=== PATIENT | male | born 2000 | race Caucasian/White ===

== ENCOUNTER 2020-12-29 23:26 | Emergency (ER) | payer SELFPAY ==
[~2020-12-29] VITALS: Ht 177.8 cm; Wt 66.4 kg
--- NOTE | 2020-12-29 23:30 | PHYS DOC ---
General Adult HPI: HPI: ". I accidentally shut the door on my index finger..." Patient is a 20 year old male who presents with above hx and complaints of Lt. index finger crush injury. Patient appears to have almost avulsion of Lt. index finger nail. Other fingers have no injury. Patient is right-hand dominant. Patient normally healthy.. Tetanus is up-to-date. No recent travel. No specific ill contacts. Review of Systems: Review of Systems: Constitutional: Denies fever or chills Eyes: Denies change in visual acuity HENT: Denies nasal congestion or sore throat Respiratory: Denies cough or shortness of breath Cardiovascular: Denies chest pain or edema GI: Denies abdominal pain, nausea, vomiting, bloody stools or diarrhea : Denies dysuria Musculoskeletal: Complains of crush injury to left index finger Integument: Denies rash Neurologic: Denies headache, focal weakness or sensory changes Endocrine: Denies polyuria or polydipsia Lymphatic: Denies swollen glands Psychiatric: Denies depression or anxiety Family History: Family History: Noncontributory to presentation Current Medications: Current Meds: See nursing for home meds Allergies: Allergies: See nursing Physical Exam: PE: Constitutional: Well developed, well nourished, in acute distress, non-toxic appearance. [] HENT: Normocephalic, atraumatic, bilateral external ears normal, oropharynx moist, no oral exudates, nose normal. [] Eyes: PERRLA, EOMI, conjunctiva normal, no discharge. [] Neck: Normal range of motion, no tenderness, supple, no stridor. [] Cardiovascular:Heart rate regular rhythm, no murmur [] Lungs & Thorax: Bilateral breath sounds clear to auscultation [] Abdomen: Bowel sounds normal, soft, no tenderness, no masses, no pulsatile masses. [] Skin: Warm, dry, no erythema, no rash. [] Back: No tenderness, no CVA tenderness. [] Extremities: No tenderness, no cyanosis, no clubbing, ROM intact, no edema. [] Crush injury to left index finger as per HPI Neurologic: Alert and oriented X 3, normal motor function, normal sensory function, no focal deficits noted. [] Psychologic: Affect normal, judgement normal, mood normal. [] EKG: EKG: [] Radiology/Procedures: Radiology/Procedures: [][address] [address] IMAGING REPORT Signed PATIENT: INDIGO TODD: [id number] : 2000 LOCATION: ER AGE: 20 SEX: M EXAM STATUS: REG ER ORD. PHYSICIAN: KRISTIN MCCURDY MD REASON: shut hand in door. PROCEDURE: HAND LEFT 3V Examination: 3 views of the left hand HISTORY: History of injury COMPARISON: None available. Findings/ impression: The alignment of the metacarpophalangeal, interphalangeal joints grossly appears unremarkable. Soft tissue laceration identified in the dorsal to distal phalanx of the index finger . Electronically signed by: Gordo Gallardo MD (12/30/2020 12:36 AM) [id number] DICTATED AND SIGNED BY: GORDO GALLARDO MD DATE: 12/30/203 CC: LISE CLAUDIO MD; KRISTIN MCCURDY MD ~MTH0 0 Heart Score: C/O Chest Pain: N/A Risk Factors: Risk Factors: DM, Current or recent (<one month) smoker, HTN, HLP, family history of CAD, obesity. Risk Scores: Score 0 - 3: 2.5% MACE over next 6 weeks - Discharge Home Score 4 - 6: 20.3% MACE over next 6 weeks - Admit for Clinical Observation Score 7 - 10: 72.7% MACE over next 6 weeks - Early Invasive Strategies Course & Med Decision Making: Course & Med Decision Making Pertinent Labs and Imaging studies reviewed. 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 Hand soaked in Betadine solution. Patient received a digital block to left index finger with 2% lidocaine. Afterwards patient scrubs finger with surgical scrub brush. Left sharp scissors were removed part of index finger nail. Patient will and we cleaned with surgical brush. Patient's finger dressed with gauze and received a sherie splint. Patient take Bactrim DS twice a day. Monitor for infection. Follow-up primary care. Patient told to expect possible nail loss. Return if any concerns. Impression: 1. Crush Injury to Lt. Index finger [] Khurram Disclaimer: Khurram Disclaimer: This electronic medical record was generated, in whole or in part, using a voice recognition dictation system. Departure Departure: Referrals: LISE CLAUDIO MD (PCP) Scripts Sulfamethoxazole/Trimethoprim (BACTRIM DS TABLET) 1 Each Tablet 1 TAB PO BID for crush for 7 Days, #14 TAB 0 Refills Prov: KRISTIN MCCURDY MD 12/30/20 KRISTIN MCCURDY MD Dec 29, 2020 23:30
[2020-12-30] MEDS ORDERED: KETOROLAC 60 MG/2 ML VIAL. IM ONE
[2020-12-30] MEDS ORDERED: LIDOCAINE 2% 20 ML VIAL. IJ ONE
[2020-12-30] MEDS ORDERED: MORPHINE SULFATE 10 MG/ML SYRINGE. SQ ONE
[2020-12-30] MEDS ORDERED: SMZ/TMP 800/160MG TABLET. PO ONE
[2020-12-30] MEDS ORDERED: cefTRIAXone IM 1 GM VIAL IM ONE
--- NOTE | 2020-12-30 00:39 | RAD ---
Examination: 3 views of the left hand HISTORY: History of injury COMPARISON: None available. Findings/ impression: The alignment of the metacarpophalangeal, interphalangeal joints grossly appears unremarkable. Soft t issue laceration identified in the dorsal to distal phalanx of the index finger . Electronically signed by: Gordo Bailey MD (12/30/2020 12:36 AM) [id number]
[2020-12-30] MEDS ORDERED: SULF1TAB24 PO (00:48)
[2020-12-30] MEDS ORDERED: GLYCERIN CHILD 1 SUPP.RECT. PR ONE (01:15)
[2020-12-30] MEDS ORDERED: MAGNESIUM HYDROXIDE 2,400 MG/30 ML ORAL.SUSP. PO ONE (01:15)
[2020-12-30] MEDS ORDERED: GLYCERIN ADULT 1 SUPP.RECT. PR ONE (01:15)
[2020-12-30 01:28] VITALS: BP 116/62
== END 2020-12-30 01:28 | disposition home or self-care (01) ==
LOC: ER 23:26
DX: S67.191A Crushing injury of left index finger, initial encounter (principal); W23.0XXA Caught, crushed, jammed, or pinched between moving objects, initial encounter; Y93.89 Activity, other specified; Y92.89 Other specified places as the place of occurrence of the external cause; Y99.8 Other external cause status
CPT/HCPCS: 11730; 73130; 96372; 99284; J0696; J1885; J2001; J2270

== ENCOUNTER 2021-06-14 00:11 | Emergency (ER) | payer SELFPAY ==
[~2021-06-14] VITALS: Ht 177.8 cm; Wt 69.4 kg
[~2021-06-14 00:11] MED LIST: SULF1TAB24 PO
[2021-06-14 00:18] VITALS: BP 116/75
[2021-06-14] MEDS ORDERED: AMOX500T PO (00:36)
--- NOTE | 2021-06-14 00:41 | PHYS DOC ---
Past History Past Surgical History: Other Additional Past Surgical Histo: facial surgery Alcohol Use: None Adult General Chief Complaint Chief Complaint: CONGESTION HPI HPI Patient is a 21-year-old male presenting for nasal congestion. This is an acute on chronic issue. He has history of seasonal allergies and typically takes antihistamine but has been off of his Claritin for numerous months. States he has suffered with nasal congestion over past 2 months due to weather changes but specifically over past 13 days has had increased nasal rhinorrhea, congestion and frontal sinus pressure. He has had no fever but ongoing symptoms without significant resolution prompted him to come in for evaluation. He denies any other relevant medical issues and takes no other medications on a daily basis. He is up-to-date on all immunizations from childhood in addition to flu and Covid. He admits to ongoing tobacco abuse but states he is decreased total frequency since current onset of symptoms, rare alcohol use, no illicit drug use Review of Systems Review of Systems Fourteen body systems of review of systems have been reviewed. See HPI for pertinent positives and negative responses, other owens all other systems are negative, non-pertinent or non-contributory Allergies Allergies Allergies Coded Allergies Type Severity Reaction Last Updated Verified bee venom protein (honey bee) Allergy Unknown 12/29/20 Yes Physical Exam Physical Exam General: Appears well, non toxic, and comfortable Skin: Warm, dry. Normal for ethnicity. HEENT: Atraumatic. PERRLA. Rhinorrhea and congestion. Frontal sinus pressure with palpation. Nasal turbinates boggy b/l. Moist mucous membranes. Uvula midline. Maintaining secretions. No phonation changes. Neck: Trachea midline. Normal ROM. No stridor. Respiratory: Normal WOB. CTAB w/o w/r/r. No tachypnea. Cardiovascular: Regular rate and rhythm. Normal peripheral perfusion. Abdomen: Soft. Non tender. No distension. Back: Normal ROM. Musculoskeletal: No swelling or deformity. Neuro: Alert and oriented x 4. MAEE. Lymph: No cervical LAD. Psych: Normal affect and mood. EKG EKG [] Radiology/Procedures Radiology/Procedures [] Heart Score C/O Chest Pain: No Risk Factors: Risk Factors: DM, Current or recent (<one month) smoker, HTN, HLP, family history of CAD, obesity. Risk Scores: Risk Factors: DM, Current or recent (<one month) smoker, HTN, HLP, family history of CAD, obesity. Course & Med Decision Making Course & Med Decision Making ABCs unremarkable History and physical exam concerning for acute bacterial sinusitis greater than 10 days in duration not otherwise well-appearing individual with no airway patency issues, phonation changes etc. Joint decision made given chronicity of symptoms to treat with antibiotics. Amoxicillin administered in ER with subsequent prescription given. Continued supportive care practices such as taking daily antihistamine advised with close PCP follow-up Did recommend checking for Covid given symptoms and current pandemic but patient deferred citing that he was fully vaccinated. He is aware he could still be positive for this infection but deferred testing at this time Ultimately all questions and concerns addressed prior to ER departure Dragon Disclaimer Dragon Disclaimer This electronic medical record was generated, in whole or in part, using a voice recognition dictation system. Departure Departure: Impression: Primary Impression: Acute bacterial sinusitis Disposition: HOME / SELF CARE / HOMELESS Condition: STABLE Referrals: LISE CLAUDIO MD (PCP) Additional Instructions: As discussed prior to ER departure, your vitals and physical exam were nonconcerning for any emergent or surgical issues. With that said you are likely suffering from bacterial sinusitis and would benefit from antibiotic use given duration of symptoms. When decision made to prescribed amoxicillin which should be taken as scheduled to completion in its entirety. He also need to start taking a daily antihistamine given your history of seasonal allergies. He is contact your primary care physician in the morning to review ER visit today and need for close outpatient follow-up. If any concerning signs or symptoms present prior to outpatient follow-up please do not hesitate to come back for repeat evaluation. It was a pleasure to take care of you and I wish you the best going forward Scripts Amoxicillin (AMOXICILLIN) 500 Mg Tablet 1 TAB PO TID for sinusitis for 7 Days, #20 TAB Prov: SUNI MARIA DO 06/14/21 SUNI MARIA DO Jun 14, 2021 00:41
[2021-06-14] MEDS ORDERED: AZITHROMYCIN 250 MG TABLET. PO ONE (00:45)
[2021-06-14] MEDS ORDERED: AMOXICILLIN 250 MG CAPSULE PO ONE (01:00)
== END 2021-06-14 00:47 | disposition home or self-care (01) ==
LOC: ER 00:11
DX: J01.80 Other acute sinusitis (principal); B96.89 Other specified bacterial agents as the cause of diseases classified elsewhere; Z91.030 Bee allergy status
CPT/HCPCS: 99283

== ENCOUNTER 2021-07-05 18:03 | Emergency (ER) | payer SELFPAY ==
[~2021-07-05] VITALS: Ht 177.8 cm; Wt 69.4 kg
[~2021-07-05 18:03] MED LIST changes: +AMOX500T PO
[2021-07-05 19:13] LABS: INFLUENZA A PATIENT NEGATIVE (NEGATIVE); INFLUENZA B PATIENT NEGATIVE (NEGATIVE)
[2021-07-05 23:00] VITALS: BP 118/75
--- NOTE | 2021-07-05 23:21 | PHYS DOC ---
Past History Past Surgical History: Other Additional Past Surgical Histo: facial surgery Alcohol Use: None General Adult EDM: Chief Complaint: CONGESTION HPI: HPI: ". I ve been congested.. " Patient is a 21 year old male who presents with above hx and complaints of congestion. Tob. use. Allergic to materials at his work. Review of Systems: Review of Systems: Constitutional: Denies fever or chills Eyes: Denies change in visual acuity HENT: C/O nasal congestion Respiratory: Denies cough or shortness of breath Cardiovascular: Denies chest pain or edema GI: Denies abdominal pain, nausea, vomiting, bloody stools or diarrhea : Denies dysuria Musculoskeletal: Denies back pain or joint pain Integument: Denies rash Neurologic: Denies headache, focal weakness or sensory changes Endocrine: Denies polyuria or polydipsia Lymphatic: Denies swollen glands Psychiatric: Denies depression or anxiety Family History: Family History: Non Cont. Trib. Current Medications: Current Meds: See Nursing for home Allergies: Allergies: Allergies Coded Allergies Type Severity Reaction Last Updated Verified bee venom protein (honey bee) Allergy Unknown 12/29/20 Yes Physical Exam: PE: Constitutional: Well developed, well nourished, no acute distress, non-toxic appearance. [] HENT: Normocephalic, atraumatic, bilateral external ears normal, oropharynx moist, no oral exudates, nose swollen turb, clear rhinorrhea. Eyes: PERRLA, EOMI, conjunctiva normal, no discharge. [] Neck: Normal range of motion, no tenderness, supple, no stridor. [] Cardiovascular:Heart rate regular rhythm, no murmur [] Lungs & Thorax: Bilateral breath sounds= with few scat. wheezes on auscultation [] Abdomen: Bowel sounds normal, soft, no tenderness, no masses, no pulsatile mass es. [] Skin: Warm, dry, no erythema, no rash. [] Back: No tenderness, no CVA tenderness. [] Extremities: No tenderness, no cyanosis, no clubbing, ROM intact, no edema. [] Neurologic: Alert and oriented X 3, normal motor function, normal sensory function, no focal deficits noted. [] Psychologic: Affect normal, judgement normal, mood normal. [] Current Patient Data: Labs: Laboratory Tests Test 07/05/21 18:30 Influenza Type A (Rapid) Negative (NEGATIVE) Influenza Type B (Rapid) Negative (NEGATIVE) SARS-CoV-2 Antigen (Rapid) Negative (NEGATIVE) Vital Signs: Vital Signs Date Time Temp Pulse Resp B/P (MAP) Pulse Ox O2 Delivery O2 Flow Rate FiO2 07/05/21 18:40 98.2 81 16 116/75 (89) 98 Room Air EKG: EKG: [] Radiology/Procedures: Radiology/Procedures: [] Heart Score: C/O Chest Pain: N/A Risk Factors: Risk Factors: DM, Current or recent (<one month) smoker, HTN, HLP, family history of CAD, obesity. Risk Scores: Score 0 - 3: 2.5% MACE over next 6 weeks - Discharge Home Score 4 - 6: 20.3% MACE over next 6 weeks - Admit for Clinical Observation Score 7 - 10: 72.7% MACE over next 6 weeks - Early Invasive Strategies Course & Med Decision Making: Course & Med Decision Making Pertinent Labs and Imaging studies reviewed. (See chart for details) As per discharge instructions. Impression: 1. Congestion - Suspect Allergic Rhinitis Note Loss dictation: # [id number] [] Ducon Disclaimer: Dragrenny Disclaimer: This electronic medical record was generated, in whole or in part, using a voice recognition dictation system. Departure Departure: Referrals: LISE CLAUDIO MD (PCP) Khurram Disclaimer This chart was dictated in whole or in part using Voice Recognition software in a busy, high-work load, and often noisy Emergency Department environment. It may contain unintended and wholly unrecognized errors or omissions. KRISTIN MCCURDY MD Jul 05, 2021 23:21
== END 2021-07-06 00:35 | disposition home or self-care (01) ==
LOC: ER 18:03
DX: R09.81 Nasal congestion (principal); Z20.822 Contact with and (suspected) exposure to COVID-19; Z91.030 Bee allergy status
CPT/HCPCS: 87428; 99283